=== PATIENT | male | born 2000 | race Caucasian/White ===

== ENCOUNTER 2021-10-14 14:02 | Emergency (ER) | payer BC ==
[2021-10-14] MEDS ORDERED: Lidocaine 1% 10 ML MDV INJECT ONE (14:46)
== END 2021-10-14 16:12 | disposition home or self-care (01) ==
LOC: JD.ED 14:02
DX: S01.111A Laceration without foreign body of right eyelid and periocular area, initial encounter (principal); Z86.16 Personal history of COVID-19; W22.09XA Striking against other stationary object, initial encounter
CPT/HCPCS: 12013; 99282-25